=== PATIENT | female | born 1995 | race Caucasian/White ===

== ENCOUNTER 2018-12-23 08:50 | Emergency (ER) | payer OTHER ==
--- NOTE | 2018-12-23 08:53 | PDOC ---
History of Present Illness - General Chief Complaint: ,Possible Stated Complaint: VAGINAL BLEEDING / Time Seen by Provider: 12/23/18 08:52 - History of Present Illness Initial Comments: 12/23/18 09:21 23yo female with pmhx of exercise induced asthma presents for vaginal bleeding that started at 1am last night. Pt spotting and blood only when she wipes. Pt c/ o lower abd cramping. No other discharge. Pt denies f/c. No dysuria. No n/v/d. No cp/sob. Pt is currently in college at [employer]. Pt states FDLMP was 10/02. Pt [facility], but has never [facility]. Pt states she has an appt with [facility] coming up, but is waiting for her insurance to start on December 27. Pt is a G1PO. PMhx: exercise induced asthma PShx: Denies Allergies: PCN Home meds: vitamins Past History - Past Medical History Allergies/Adverse Reactions: Allergies Allergy/AdvReac Type Severity Reaction Status Date / Time Penicillins Allergy Intermediate Rash Verified 12/23/18 08:59 Home Medications: Ambulatory Orders Albuterol Sulfate [Proair Hfa] 8.5 gm IH PRN 12/23/18 - Immunization History Immunization Up to Date: Yes - Suicide/Smoking/Psychosocial Hx Smoking History: Never smoked Review of Systems - Review of Systems Able to Perform ROS?: Yes Is the patient limited [place] proficient: No Constitutional: No: Chills, Fever HEENTM: No: Nose Pain, Throat Pain Respiratory: No: Cough, Shortness of Breath Cardiac (ROS): No: Chest Pain, Lightheadedness ABD/GI: Yes: Abdominal cramping. No: Diarrhea, Nausea, Vomiting : Yes: Other (vaginal bleeding). No: Burning, Dysuria Musculoskeletal: No: Back Pain Integumentary: No: Rash Neurological: No: Headache, Numbness, Paresthesia All Other Systems: Reviewed and Negative *Physical Exam - Vital Signs 12/23/18 09:29 Selected Entries 12/23/18 08:51 Temperature 97.5 F L Pulse Rate 87 Respiratory 16 Rate Blood Pressure 133/84 Blood Pressure 100 Mean O2 Sat by Pulse 100 Oximetry (%) Weight 74.843 kg - Physical Exam General Appearance: Yes: Nourished, Appropriately Dressed. No: Apparent Distress HEENT: positive: EOMI, Normal Voice Neck: positive: Supple Respiratory/Chest: positive: Lungs Clear, Normal Breath Sounds. negative: Chest Tender, Respiratory Distress Cardiovascular: positive: Regular Rhythm, Regular Rate, S1, S2. negative: Edema Female Pelvic Exam: positive: cervical os closed, normal adnexa, discharge ( scant amount of dark red blood in the vault, no cmt, os closed, no adnexal ttp) . negative: CMT, adnexal tenderness Gastrointestinal/Abdominal: positive: Normal Bowel Sounds, Tender (mild suprapubic ttp), Flat, Soft Musculoskeletal: positive: Normal Inspection. negative: CVA Tenderness Extremity: positive: Normal Capillary Refill, Normal Inspection. negative: Swelling, Calf Tenderness Integumentary: positive: Normal Color, Dry, Warm Neurologic: positive: Fully Oriented, Alert, Normal Mood/Affect ED Treatment Course - LABORATORY CBC & Chemistry Diagram: 12/23/18 09:17 12/23/18 09:07 Medical Decision Making - Medical Decision Making 12/23/18 09:32 a/p: 23yo female with vaginal bleeding in the first trimester -concern for uti vs threatened ab vs subchorionic hemorrhage vs ectopic -no prior ultrasound -had intercourse yesterday and bleeding afterwards - could be from local trauma -will send labs, type and screen -will send ua -tvus for first trimester bleeding 12/23/18 11:23 IUP at 12 weeks, fhr 153 pending beta and type and screen 12/23/18 11:24 mildly elevated calcium- pt will need to orally hydrate- no signs of hypercalcium 12/23/18 11:27 pt is A+ 12/23/18 11:47 beta >[id number] *DC/Admit/Observation/Transfer Diagnosis at time of Disposition: Threatened in first trimester, Vaginal bleeding in patient at less than 20 weeks gestation - Discharge Dispostion Disposition: HOME Condition at time of disposition: Stable Decision to Admit order: No - Referrals Referrals: Marina Denney MD [Staff Physician] - - Patient Instructions Printed Discharge Instructions: DI for Threatened Additional Instructions: Please practice pelvic rest. Please make an appointment to see your [facility]. Please continue to take vitamins. If you start to bleed more than 2 pads an hour for more than 2 hours please return to the ED immediately. Please have a repeat Beta HCG in 2 days. Your result today was [id number]. Please return to the ED with any further concerns or complaints. - Post Discharge Activity Forms/Work/School Notes: Back to School - Attestations Physician Attestion: 12/23/18 11:56 I, Dr. Cynthia Espinoza, DO, attest that this document has been prepared under my direction and personally reviewed by me in its entirety. I further attest, that it accurately reflects all work, treatment, procedures and medical decision -making performed by me.
[2018-12-23 09:07] VITALS: TEMP 97.5; BMI 27.4
[2018-12-23 09:26] LABS: BASO % 1.6 % (0-2.0); HEMATOCRIT 39.5 % (32.4-45.2); HEMOGLOBIN 13.1 GM/dl (10.7-15.3); LYMPH % 18.1 % (8-40); MCH 29.2 pg (25.7-33.7); MCHC 33.1 g/dl (32.0-36.0); MEAN CELL VOLUME 88.3 fl (80-96); MEAN PLT VOLUME 9.5 fl (7.5-11.1); MONO % 6.1 % (3.8-10.2); NEUT % 73.2 % (42.8-82.8); PLATELET COUNT 258 K/MM3 (134-434); RBC 4.48 M/mm3 (3.60-5.2); RDW 11.4 % (11.6-15.6); WHITE BLOOD COUNT 8.8 K/mm3 (4.0-10.8)
[2018-12-23 09:39] LABS: ALBUMIN 3.8 g/dl (3.4-5.0); ALK PHOS 71 U/L (45-117); ANION GAP 8 MMOL/L (8-16); BILIRUBIN,TOTAL 0.6 mg/dl (0.2-1); BLOOD UREA NITROGEN 12 mg/dl (7-18); CALCIUM 10.5 mg/dl (8.5-10); CHLORIDE 103 mmol/L (98-107); CO2 22 mmol/L (21-32); CREATININE 0.6 mg/dl (0.55-1.3); GLUCOSE,RANDOM 87 mg/dl (74-106); POTASSIUM 3.8 mmol/L (3.5-5.1); SGOT/AST 19 U/L (15-37); SGPT/ALT 15 U/L (13-61); SODIUM 133 mmol/L (136-145); TOT PROT 7.2 g/dl (6.4-8.2)
[2018-12-23 09:59] LABS: URINE APPEARANCE Clear; URINE BILIRUBIN 1+ (NEGATIVE); URINE COLOR Yellow; URINE GLUCOSE (UA) Negative (NEGATIVE); URINE KETONE Trace (NEGATIVE); URINE LEUK ESTERASE Negative (NEGATIVE); URINE NITRITE Negative (NEGATIVE); URINE PROTEIN Trace (NEGATIVE); URINE UROBILINOGEN 0.2 (0.2-1.0)
[2018-12-23 10:15] LABS: EPI CELLS 1+ /HPF; URINE BACTERIA FEW /hpf (NEGATIVE); URINE WBC 0-3 (0-5)
[2018-12-23 11:51] VITALS: BP 114/75; PULSE 74
== END 2018-12-23 12:03 | disposition home or self-care (01) ==
LOC: FER 08:50
DX: O26.891 Other specified pregnancy related conditions, first trimester (principal); O20.0 Threatened abortion; Z3A.01 Less than 8 weeks gestation of pregnancy
CPT/HCPCS: 36415; 76817-TC; 80053; 81003; 81015; 84702; 85025; 86850; 86900; 86901; 99283-25

== ENCOUNTER 2019-07-07 19:48 | Inpatient (IN) | payer OTHER ==
[2019-07-07 20:44] LABS: BASO % 0.5 % (0-2.0); EOS % 0.5 % (0-4.5); HEMATOCRIT 32.8 % (32.4-45.2); HEMOGLOBIN 10.9 GM/dL (10.7-15.3); LYMPH % 15.2 % (8-40); MCH 29.8 pg (25.7-33.7); MCHC 33.1 g/dl (32.0-36.0); MEAN CELL VOLUME 89.9 fl (80-96); MEAN PLT VOLUME 10.6 fl (7.5-11.1); MONO % 7.1 % (3.8-10.2); NEUT % 76.7 % (42.8-82.8); PLATELET COUNT 168 K/MM3 (134-434); RBC 3.65 M/mm3 (3.60-5.2); RDW 13.6 % (11.6-15.6); RETICULOCYTES 1.53 % (0.5-1.5); WHITE BLOOD COUNT 9.9 K/mm3 (4.0-10.0)
[2019-07-07] MEDS: DEXTROSE 5%-LACTATED RINGERS 1,000 ML IV SCH (20:45)
[2019-07-07 20:51] LABS: INR 0.87 (0.83-1.09); PROTHROMBIN TIME (PATIENT) 10.2 SEC (9.7-13.0)
[2019-07-07 20:54] LABS: ACTIVATED PTT 25.8 SECONDS (25.2-36.5)
[2019-07-07 20:59] LABS: EPI CELLS 3.3 /HPF (0-5/HPF); HYALINE CASTS 9 /lpf (0-8); URINE APPEARANCE TURBID; URINE BACTERIA 336.7 /hpf (NEGATIVE); URINE BILIRUBIN NEGATIVE (NEGATIVE); URINE COLOR YELLOW; URINE GLUCOSE (UA) NEGATIVE (NEGATIVE); URINE KETONE NEGATIVE (NEGATIVE); URINE LEUK ESTERASE NEGATIVE (NEGATIVE); URINE NITRITE NEGATIVE (NEGATIVE); URINE PROTEIN TRACE (NEGATIVE); URINE RBC 1 /hpf (0-4); URINE UROBILINOGEN 0.2 mg/dL (0.2-1.0); URINE WBC 6 /hpf (0-5)
[2019-07-07 21:06] LABS: BLOOD UREA NITROGEN 13.7 mg/dL (7-18); CALCIUM 9.9 mg/dL (8.5-10.1); CREATININE 0.7 mg/dL (0.55-1.3); POTASSIUM 3.8 mmol/L (3.5-5.1); URIC ACID 5.6 mg/dL (2.6-7.2)
[2019-07-07] MEDS ORDERED: BUTORPHANOL TARTRATE 1 MG/ML VIAL IVPB ONE (21:14)
[2019-07-07] MEDS ORDERED: PROMETHAZINE HCL 25 MG/1 ML VIAL IVPUSH ONE (21:14)
--- NOTE | 2019-07-07 21:14 | HP ---
Past Medical History - Primary Care Physician PCP:: Marina Denney - Admission Chief Complaint: 23yo P0 @39.5wk with proteinuria, flactuating BPs, for IOL, no VB, no LOF, + Fm History of Present Illness: 1. Late registrant - Quad wnl 2. Flu shot 07/07/19 given History Source: Patient Limitations to Obtaining History: No Limitations - Past Medical History Pulmonary: Yes: Asthma (mild - ProAir PRN) ...: 1 ... Weeks Gestation by Dates: 39.4 ...EDC by Dates: 07/09/19 - Past Surgical History Past Surgical History: Yes: None Hx Myomectomy: No Hx Transabdominal Cerclage: No - Smoking History Smoking history: Never smoked - Alcohol/Substance Use Hx Alcohol Use: No History of Substance Use: reports: None - Social History History of Recent Travel: No Home Medications - Allergies Allergies/Adverse Reactions: Allergies Allergy/AdvReac Type Severity Reaction Status Date / Time Penicillins Allergy Intermediate Rash Verified 07/07/19 21:05 - Home Medications Home Medications: Ambulatory Orders Albuterol Sulfate [Proair Hfa] 8.5 gm IH PRN 12/23/18 Vits96/Iron Fum/Folic [ Tablet] 1 tab PO DAILY 03/31/19 Family Disease History - Family Disease History Family History: Denies Review of Systems - Review of Systems Constitutional: reports: No Symptoms Eyes: reports: No Symptoms HENT: reports: No Symptoms Neck: reports: No Symptoms Cardiovascular: reports: No Symptoms Respiratory: reports: No Symptoms Gastrointestinal: reports: No Symptoms Genitourinary: reports: No Symptoms Breasts: reports: No Symptoms Reported Musculoskeletal: reports: No Symptoms Integumentary: reports: No Symptoms Neurological: reports: No Symptoms Endocrine: reports: No Symptoms Hematology/Lymphatic: reports: No Symptoms Psychiatric: reports: No Symptoms Physical Exam - Maternity Vital Signs: Vital Signs Temperature Pulse Rate 71 07/07/19 21:00 Respiratory Rate 20 07/07/19 21:00 Blood Pressure 132/82 07/07/19 21:00 O2 Sat by Pulse Oximetry (%) Constitutional: Yes: Well Nourished, No Distress, Calm Eyes: Yes: WNL, Conjunctiva Clear, EOM Intact HENT: Yes: WNL, Atraumatic, Normocephalic Neck: Yes: WNL, Supple, Trachea Midline Cardiovascular: Yes: WNL, Regular Rate and Rhythm Lungs: Clear to auscultation Breast(s): Yes: WNL - Abdominal Exam/OB Fundal Height: 35 Number of Fetuses: Single Presentation: Vertex Contractions: Yes Regularity: Irregular Intensity: Unaware Monitor Mode: External Heart Rate (range): 140 Heart Rate Location: Midline Category: I Accelerations: Uniform Decelerations: None - Vaginal Exam/OB Vaginal Bleediing: No Speculum Exam: No Dilatation (cm): 1 Effacement (%): 20% Amniotic Membrane Status: Intact Presentation: Vertex/Position Station: -3 - Physical Exam Musculoskeletal: Yes: WNL Extremities: Yes: WNL Edema: Yes Edema: LUE: 1+, LLE: 1+ Integumentary: Yes: WNL Deep Tendon Reflex Grade: Normal +2 ...Motor Strength: WNL Psychiatric: Yes: WNL, Alert, Oriented - Labs Lab Results: CBC, BMP 07/07/19 20:30 07/07/19 20:30 Assessment/Plan 23yo P0 @ 39.5 wks with 400mg/24hr proteinuria, edeama, flactuating BPs for IOL The fetus with Category I tracing. Adequate pelvimetry. We discussed the tx options with the pt and her . I explained the options of expectant management awaiting spontaneous ctx/labor, cervix unfavorable so cervical ripening with Cititec and continue with Pitocin induction, and elective section. The risks of uterine tachysystole, distress, uterine rupture, need for emergency C/S, hemorrhage, infection, scarring, etc. were discussed. We also discussed the risks of meconium aspiration and shoulder dystocia. Plan to induce labor with Cytotec. Risks, benefits, alternatives discussed.
[2019-07-07 21:35] VITALS: BMI 29.1
[2019-07-08] MEDS ORDERED: DINOPROSTONE 10 MG VAGINAL SUPPOSITORY VG STA (04:41)
[2019-07-08] MEDS: DEXTROSE 5%-LACTATED RINGERS 1,000 ML IV SCH (06:40)
[2019-07-08] MEDS ORDERED: MISOPROSTOL 100 MCG TABLET PV SCH (08:00)
--- NOTE | 2019-07-08 08:50 | PN ---
Progress Note, Labor Vaginal Exam #1 Labor Exam Date: 07/08/19 Labor Exam Time: 04:30 Heart Rate (range): 140 Dilatation: 1-2 Effacement (%): 50% Amniotic Membrane Status: Intact Presentation: Vertex/Position Station: -3 Remarks: No significant cervical change with Cytotec Cervidil placed Fetus category 1 few elevated BPs, asymptomatic, no sever range BPs labs wnl continue induction
[2019-07-08] MEDS ORDERED: BUTORPHANOL TARTRATE 1 MG/ML VIAL ONE ×2 (11:53)
[2019-07-08] MEDS ORDERED: PROMETHAZINE HCL 25 MG/1 ML VIAL ONE (11:53)
[2019-07-08] MEDS ORDERED: OXYTOCIN 30 UNITS in 0.9% NS 30 UNIT/500 ML INFUS.BAG IVPB ONE (11:53)
[2019-07-08] MEDS: OXYTOCIN 30 UNITS in 0.9% NS 30 UNIT/500 ML INFUS.BAG IVPB SCH (12:00)
[2019-07-08] MEDS: ELECTROLYTE-148 SOLN 1,000 ML IV SCH (14:30)
[2019-07-08] MEDS ORDERED: FENTANYL/BUPIVACAINE/NS/PF - PCEA - 50 ML DISP.SYRIN EP ONE ×2 (15:47→20:58)
[2019-07-08] MEDS ORDERED: NALOXONE HCL 0.4 MG/ML VIAL IVPUSH PRN (15:53)
[2019-07-08] MEDS ORDERED: BUPIVACAINE HCL/PF 2.5 MG/ML - 30 ML VIAL IJ ONE (15:55)
[2019-07-08] MEDS ORDERED: FENTANYL/BUPIVACAINE/NS/PF - PCEA - 50 ML DISP.SYRIN EP SCH (16:00)
--- NOTE | 2019-07-08 16:36 | PN ---
Progress Note, Labor Vaginal Exam #2 Labor Exam Date: 07/08/19 Labor Exam Time: 16:30 Heart Rate (range): 140's Category 1 Dilatation: 5cm Effacement (%): 90% Amniotic Membrane Status: Ruptured (clear) Presentation: Vertex/Position Station: -3 Remarks: Patient requested and received epidural anesthesia While sitting for epidural SROM - clear fluid and had one sever elevation of BP, which resolved spontaneously immediately as soon as comfortable Will continue monitoring BPs, she is asymptomatic Restart Pitocin at 1mU/min Adequate pelvis, EFW 6.5lb
--- NOTE | 2019-07-08 18:50 | PN ---
Progress Note, Labor Vaginal Exam #3 Labor Exam Date: 07/08/19 Labor Exam Time: 18:30 Heart Rate (range): 150, Category 1 Dilatation: 6-7cm Effacement (%): 100 Amniotic Membrane Status: Ruptured Presentation: Vertex/Position Station: -2 Remarks: Modarately elevated BP, no sever range Progressive cervical change Reassuring fetus continue close monitoring
--- NOTE | 2019-07-08 21:09 | PN ---
Ante-Partal Exam - Subjective Subjective: No complaints. Pitocin at 2mU and epidural in place. Vital Signs: Vital Signs Temperature 98.7 F 07/08/19 20:00 Pulse Rate 98 H 07/08/19 19:45 Respiratory Rate 18 07/08/19 19:45 Blood Pressure 148/91 07/08/19 19:45 O2 Sat by Pulse Oximetry (%) 99 07/08/19 19:45 Bleeding: No Headache: No Visual changes: No Pain (scale 1-10): 0 - Contractions Contractions: Yes Regularity: Regular Intensity: Mild/Mod Monitor Mode: External - Exam during Labor Heart Rate: 155 Variability: Moderate Heart Rate Location: Midline Category: I Monitor Accelerations: Absent Monitor Decelerations: None Exam: Vaginal Dilatation (cm): 9 Effacement (%): 90 Amniotic Membrane Status: Leaking Amniotic Fluid: Clear Presentation: Vertex Station: 0 - Intrapartum Hemorrhage Risk Medium Risk Factors: None High Risk Factors: None Risk Score: 0 Risk Level: Low Risk - Assessment/Plan Assessment/Plan: 23yo female at EGA 39w6d with mild preeclampsia undergoing labor indx. Fetus with Category I tracing and does not require intervention. BP (and proteinuria) are c/w mild PEC. Pt is not on Mag Sulphate due to no severe features at this time. Labor progressed in second stage. Plan to monitor progress. Plan d/w pt and family.
[2019-07-08] MEDS ORDERED: LIDOCAINE HCL 1% PRESERVATIVE FREE - 30ML VIAL ONE (23:24)
[2019-07-09] MEDS ORDERED: IBUPROFEN 600 MG TABLET (FP) PO PRN (01:05)
[2019-07-09] MEDS ORDERED: WITCH HAZEL 50% (TUCKS) 40 PAD/JAR PAD TP PRN (01:05)
[2019-07-09] MEDS ORDERED: BISACODYL 10 MG SUPP.RECT RC PRN (01:05)
[2019-07-09] MEDS ORDERED: BENZOCAINE 28 GM HEMORRHOIDAL OINTMENT TP PRN (01:05)
[2019-07-09] MEDS ORDERED: ACETAMINOPHEN 325 MG TABLET (FP) PO PRN (01:05)
[2019-07-09] MEDS ORDERED: METHYLERGONOVINE MALEATE 0.2 MG/1 ML AMP IM PRN (01:05)
[2019-07-09] MEDS ORDERED: BENZOCAINE 20% 57 GM BOTTLE TP PRN (01:05)
[2019-07-09] MEDS ORDERED: OXYTOCIN 20 UNITS in 0.9% NS 20 UNIT/1,000 ML INFUS.BAG IV SCH (01:15)
[2019-07-09] MEDS ORDERED: OXYTOCIN 20 UNITS in 0.9% NS 20 UNIT/1,000 ML INFUS.BAG IV ONE (01:37)
[2019-07-09] MEDS: OXYTOCIN 30 UNITS in 0.9% NS 30 UNIT/500 ML INFUS.BAG IVPB SCH (03:53)
[2019-07-09] MEDS: DEXTROSE 5%-LACTATED RINGERS 1,000 ML IV SCH (03:53)
[2019-07-09] MEDS: ELECTROLYTE-148 SOLN 1,000 ML IV SCH (03:53)
[2019-07-09] MEDS ORDERED: PATIENT'S OWN MEDICATION (NON-FORMULARY) (Prenatal Vits96/Iron Fum/Folic [Prenatal Tablet] PO SCH (10:00)
[2019-07-09] MEDS: PRENATAL VITAMINS W/ FOLIC ACID TABLET (FP) PO SCH (10:28)
[2019-07-10 08:25] LABS: BASO % 0.5 % (0-2.0); EOS % 1.3 % (0-4.5); HEMOGLOBIN 10.2 GM/dL (10.7-15.3); LYMPH % 19.5 % (8-40); MEAN CELL VOLUME 90.8 fl (80-96); MEAN PLT VOLUME 10.4 fl (7.5-11.1); MONO % 8.2 % (3.8-10.2); NEUT % 70.5 % (42.8-82.8); PLATELET COUNT 146 K/MM3 (134-434); RBC 3.41 M/mm3 (3.60-5.2); RDW 14.1 % (11.6-15.6); WHITE BLOOD COUNT 11.9 K/mm3 (4.0-10.0)
[2019-07-10] MEDS: PRENATAL VITAMINS W/ FOLIC ACID TABLET (FP) PO SCH (09:30)
--- NOTE | 2019-07-10 17:31 | PN ---
Post Progress Note - Subjective Subjective: Patient without acute complaints. Denies headache, change in vision, right upper quadrant pain. Reports tolerating oral intake without nausea or vomiting. Ambulating without dizziness. Denies fevers or chills. Pain well controlled with oral pain medication. without difficulty. Passing flatus. Post Day: 1 Type of Delivery: Vital Signs: Vital Signs Temperature 98.2 F 07/10/19 10:00 Pulse Rate 71 07/10/19 10:00 Respiratory Rate 18 07/10/19 10:00 Blood Pressure 140/85 07/10/19 10:00 O2 Sat by Pulse Oximetry (%) 98 07/08/19 23:45 Breast Exam: Yes: Soft Uterus: Yes: Fundus Firm Abdomen/GI: Yes: Abdomen soft, Passing flatus, Tolerating PO. No: Abdominal Distention, Tender Lochia: Yes: Rubra Lochia, amount: Moderate Extremities: Yes: Calves non-tender, Edema (trace) Activity: Ambulating - Labs Labs: CBC WBC 11.9 K/mm3 (4.0-10.0) H 07/10/19 07:11 RBC 3.41 M/mm3 (3.60-5.2) L 07/10/19 07:11 Hgb 10.2 GM/dL (10.7-15.3) L 07/10/19 07:11 Hct 31.0 % (32.4-45.2) L 07/10/19 07:11 MCV 90.8 fl (80-96) 07/10/19 07:11 MCH 30.0 pg (25.7-33.7) 07/10/19 07:11 MCHC 33.0 g/dl (32.0-36.0) 07/10/19 07:11 RDW 14.1 % (11.6-15.6) 07/10/19 07:11 Plt Count 146 K/MM3 (134-434) 07/10/19 07:11 MPV 10.4 fl (7.5-11.1) 07/10/19 07:11 Absolute Neuts (auto) 8.4 K/mm3 (1.5-8.0) H 07/10/19 07:11 Neutrophils % 70.5 % (42.8-82.8) 07/10/19 07:11 Lymphocytes % 19.5 % (8-40) D 07/10/19 07:11 Monocytes % 8.2 % (3.8-10.2) 07/10/19 07:11 Eosinophils % 1.3 % (0-4.5) D 07/10/19 07:11 Basophils % 0.5 % (0-2.0) 07/10/19 07:11 Nucleated RBC % 0 % (0-0) 07/10/19 07:11 Retic Count 1.53 % (0.5-1.5) H 07/07/19 20:30 Haptoglobin 132 mg/dL (34-200) 07/07/19 20:30 Assessment/Plan 23 yo PPD # 1 s/p , afebrile, vital sign sstable, doing well 1. Continue routine care. 2. AM CBC without anemia 3. Rh positive status, no rhogam indicated. 4. Encourage ambulation 5. Continue oral pain medication 6. BP labile, asymptomatic PEC precautions reviewed 7. Anticipate discharge home day #2
[2019-07-10] MEDS ORDERED: SENNOSIDES/DOCUSATE COMBO (SENNA PLUS) TABLET (UD) PO PRN (22:00)
--- NOTE | 2019-07-11 08:49 | PN ---
Post Progress Note - Subjective Subjective: Doing well. No complaints. No symptoms of PEC. Post Day: 2 Type of Delivery: Vital Signs: Vital Signs Temperature 98.0 F 07/10/19 20:09 Pulse Rate 85 07/10/19 20:09 Respiratory Rate 20 07/10/19 20:09 Blood Pressure 151/93 07/10/19 20:09 O2 Sat by Pulse Oximetry (%) 98 07/08/19 23:45 Breast Exam: Yes: Soft Uterus: Yes: Fundus Firm, Fundus below umbilicus, Non-tender Abdomen/GI: Yes: Abdomen soft, Tolerating PO Lochia: Yes: Rubra Lochia, amount: Small Extremities: Yes: Calves non-tender, Edema (trace) Perineum: Yes: Intact Activity: Ambulating - Labs Labs: CBC WBC 11.9 K/mm3 (4.0-10.0) H 07/10/19 07:11 RBC 3.41 M/mm3 (3.60-5.2) L 07/10/19 07:11 Hgb 10.2 GM/dL (10.7-15.3) L 07/10/19 07:11 Hct 31.0 % (32.4-45.2) L 07/10/19 07:11 MCV 90.8 fl (80-96) 07/10/19 07:11 MCH 30.0 pg (25.7-33.7) 07/10/19 07:11 MCHC 33.0 g/dl (32.0-36.0) 07/10/19 07:11 RDW 14.1 % (11.6-15.6) 07/10/19 07:11 Plt Count 146 K/MM3 (134-434) 07/10/19 07:11 MPV 10.4 fl (7.5-11.1) 07/10/19 07:11 Absolute Neuts (auto) 8.4 K/mm3 (1.5-8.0) H 07/10/19 07:11 Neutrophils % 70.5 % (42.8-82.8) 07/10/19 07:11 Lymphocytes % 19.5 % (8-40) D 07/10/19 07:11 Monocytes % 8.2 % (3.8-10.2) 07/10/19 07:11 Eosinophils % 1.3 % (0-4.5) D 07/10/19 07:11 Basophils % 0.5 % (0-2.0) 07/10/19 07:11 Nucleated RBC % 0 % (0-0) 07/10/19 07:11 Retic Count 1.53 % (0.5-1.5) H 07/07/19 20:30 Haptoglobin 132 mg/dL (34-200) 07/07/19 20:30 Assessment/Plan 23yo s/p , stable. BP is elevated. Plan to check labs. Start Procardia XL. Asymptomatic for anemia. care instructions reviewed. Continue routine care. Ambulation encouraged Discharge instruction reviewed.
[2019-07-11 09:43] LABS: BASO % 0.6 % (0-2.0); HEMATOCRIT 31.9 % (32.4-45.2); HEMOGLOBIN 10.7 GM/dL (10.7-15.3); LYMPH % 16.8 % (8-40); MCH 30.2 pg (25.7-33.7); MCHC 33.6 g/dl (32.0-36.0); MEAN PLT VOLUME 9.6 fl (7.5-11.1); MONO % 5.8 % (3.8-10.2); NEUT % 74.8 % (42.8-82.8); PLATELET COUNT 180 K/MM3 (134-434); RBC 3.55 M/mm3 (3.60-5.2); RDW 13.9 % (11.6-15.6); WHITE BLOOD COUNT 11.7 K/mm3 (4.0-10.0)
[2019-07-11] MEDS: PRENATAL VITAMINS W/ FOLIC ACID TABLET (FP) PO SCH (09:45)
[2019-07-11] MEDS ORDERED: NIFEdipine E.R. 30 MG TABLET (FP) PO SCH (10:00)
[2019-07-11 10:08] LABS: ALBUMIN 2.7 g/dl (3.4-5.0); BILIRUBIN,TOTAL 0.4 mg/dL (0.2-1); BLOOD UREA NITROGEN 14.4 mg/dL (7-18); CALCIUM 9.5 mg/dL (8.5-10.1); CREATININE 0.7 mg/dL (0.55-1.3); POTASSIUM 3.9 mmol/L (3.5-5.1); TOT PROT 6.1 g/dl (6.4-8.2)
[2019-07-11 14:01] VITALS: BP 142/87; PULSE 84
[2019-07-11 14:02] VITALS: TEMP 97.9
== END 2019-07-11 17:00 | disposition home or self-care (01) | DRG 560 ==
LOC: JLDR 19:48 → J3W 07-09 02:50
PROVIDERS: ADMIT Obstetrics & Gynecology; ATTEND Obstetrics & Gynecology
PROC: 3E0P7VZ Introduction of Hormone into Female Reproductive, Via Natural or Artificial Opening (ICD-10-PCS; 2019-07-08)
PROC: 10E0XZZ Delivery of Products of Conception, External Approach (ICD-10-PCS; principal; 2019-07-09)
DX: O14.04 Mild to moderate pre-eclampsia, complicating childbirth (principal); Z3A.39 39 weeks gestation of pregnancy; Z37.0 Single live birth
CPT/HCPCS: 36415; 36600; 59409; 80048; 80053; 81003; 82803; 82977; 83010; 84450; 84460; 84550; 85025; 85044; 85610; 85730; 86593; 86850; 86900; 86901